=== PATIENT | male | born 1945 | race Caucasian/White ===

== ENCOUNTER 2018-08-16 07:37 | Day surgery (SDC) ==
[2018-08-16] MEDS: TETRACAINE 0.5% UNIT-DOSE OP PRN ×3 (07:50→08:36)
[2018-08-16] MEDS: BETADINE OPTH PREP OP PRN ×2 (07:50→08:16)
[2018-08-16] MEDS: CYCLOGYL 2% OPTH OP PRN ×3 (07:51→08:01)
[2018-08-16] MEDS ORDERED: ZOFRAN 4 MG/2 ML IVP ONE (07:56)
[2018-08-16] MEDS ORDERED: BRIMONIDINE TARTRATE 0.2% OPTH SOL OP PRN (07:56)
[2018-08-16] MEDS ORDERED: LIDOCAINE 1% 20 ML MDV ID STA (07:56)
[2018-08-16 08:02] VITALS: TEMP 98.2
[2018-08-16] MEDS ORDERED: VERSED ONE (08:33)
[2018-08-16] MEDS ORDERED: SUBLIMAZE ONE (08:33)
[2018-08-16] MEDS ORDERED: ZOFRAN 4 MG/2 ML ONE (08:33)
[2018-08-16] MEDS ORDERED: DIPRIVAN 20 ML VIAL IVP ONE (08:33)
[2018-08-16] MEDS: BSS WITH EPINEPHRINE OP ONE ×2 (08:37→08:39)
[2018-08-16] MEDS: DEX-MOXI-KETOR OPTH INJ 1/0.5/0.4 MG/ML IO ONE ×2 (08:37→08:41)
[2018-08-16] MEDS: LIDOCAINE 1%/PHENYLEPHRINE 1.5% BSS (SURGERY) INTRAOCULA ONE ×2 (08:37→08:39)
[2018-08-16 09:11] VITALS: BP 115/63
== END 2018-08-16 09:25 | disposition home or self-care (01) ==
LOC: SURG 07:37
PROVIDERS: ATTEND Ophthalmology
DX: H25.811 Combined forms of age-related cataract, right eye (principal)